=== PATIENT | female | born 1955 | race Caucasian/White ===

== ENCOUNTER 2018-07-17 17:44 | Observation (INO) ==
[2018-07-17] MEDS ORDERED: 0.9 % Sodium Chloride 1,000 ML IVC ONE (18:48)
--- NOTE | 2018-07-17 18:53 | Emergency Department Note ---
Disposition Clinical Impression: Pneumonitis Sepsis Qualifiers: Sepsis type: sepsis due to unspecified organism Qualified Code(s): A41.9 - Sepsis, unspecified organism Disposition: Admitted As Inpatient Referrals: James Ramos DO [Primary Care Provider] - Forms: ED Satisfaction Letter General Adult HPI - General Chief complaint: ED Weakness Stated complaint: Weak / Cough / Chest And Back Pain Time Seen by Provider: 07/17/18 18:32 Source: patient, family Limitations: no limitations Nursing Notes Reviewed: Yes Vital Signs Reviewed: Yes - History of Present Illness HPI Narrative: 63-year-old female history of s/p pituitary surgery presents emergency department with weakness cough and chest pain. She states over the past 4 days she is been experiencing a productive cough that has gradually worsened. Today she began experiencing chest pressure approximately 8 hours prior to arrival. It is worse with deep inspiration. She has some associated back pain. The back pain and chest pain or separate and does not radiate one from the other. Denies any syncope or lightheadedness. It is worse as well after coughing. She denies any fevers but does admit to being cold. She has been feeling weak unable to move around. Denies any muscle aches. She is concerns you might have the flu or pneumonia. No recent hospitalization. She has not taken anything for the pain. No history of cardiac ischemic disease. She denies any hemoptysis, history of blood clots, cancer or recent long-distance travel. Pain Scale: 10 - Related Data Home Medications Medication Instructions Recorded Confirmed Calcium 04/12/16 Levothyroxine 04/12/16 PredniSONE 04/12/16 04/12/16 Previous Rx's Medication Instructions Recorded Diclofenac Sodium [Voltaren] 50 mg PO Q8HR #30 tablet. 04/12/16 Ondansetron ODT [Zofran ODT] 4 mg SL Q6HR #15 tab.rapdis 09/09/16 levoFLOXacin [Levaquin] 500 mg PO DAILY #7 tablet 07/02/17 Allergies Allergy/AdvReac Type Severity Reaction Status Date / Time Penicillins [PCN] Allergy See Verified 04/12/16 18:42 Comments All systems ED: reviewed and negative except as stated. Review of Systems: As Per HPI Constitutional: Reports: chills. Denies: fever ENT ED: Reports: ear pain. Denies: congestion Cardiovascular: Reports: chest pain, dyspnea on exertion. Denies: syncope Respiratory: Reports: cough, dyspnea, sputum production. Denies: hemoptysis Gastrointestinal: Denies: abdominal pain, nausea, vomiting Genitourinary: Denies: dysuria Musculoskeletal: Reports: back pain. Denies: neck pain Integumentary: Denies: rash, abrasion Neurological: Denies: headache Past Medical History - Past Medical History Attestation: Yes The following information was validated with the patient. Source: patient Medical history: Reports: non-contributory, thyroid disease Psychiatric history: Reports: no psych history - Social History Smoking Status: Never smoker Smokeless Tobacco Status: No Alcohol use: Reports: none Drug use: Reports: none Physical Exam - General Limitations: no limitations General appearance: alert, in no apparent distress - Head Head exam: atraumatic, normocephalic, normal inspection - Eye Eye exam: Present: normal appearance, PERRL, EOMI - ENT ENT exam: normal exam, normal oropharynx, mucous membranes moist - Neck Neck exam: Present: normal inspection, full ROM, trachea midline - Chest Chest inspection: Present: normal inspection, symmetric chest wall rise, tenderness (Midsternum, reproducible). Absent: rash - Respiratory Respiratory exam: Present: normal lung sounds bilaterally. Absent: respiratory distress, wheezes - Cardiovascular Cardiovascular exam: Present: regular rate, normal rhythm, normal heart sounds - Abdominal Exam Abdominal exam: Present: soft, Non-Tender, normal bowel sounds. Absent: tenderness, distention, guarding, rebound, rigidity - Extremities Exam Extremities exam: Present: normal inspection, full ROM, normal capillary refill. Absent: tenderness, pedal edema, calf tenderness - Back Exam Back exam: Present: normal inspection, full ROM. Absent: tenderness - Neurological Exam Neurological exam: Present: alert, oriented X3 - Psychiatric Psychiatric exam: Present: normal affect, normal mood - Skin Skin exam: Present: warm, dry, intact, normal color. Absent: rash, cyanosis, diaphoresis Course Course Narrative: Patient presents with cough over the past 4 days with some associated chest pain. No history of cardiac ischemic disease. She is tachycardic with increased respiratory rate. Concern for sepsis likely respiratory source. Also obtain a D dimer as she is low risk and of flu swab. Patient was warm to the touch and will receive Tylenol for her discomfort. Her lungs were otherwise clear auscultation bilaterally. Chest x-ray to evaluate for any pulmonary etiology. - Reevaluation(s) Reevaluation #1: Patient has a mild leukocytosis. Her labs or otherwise unremarkable. Troponin is less than 0.03. Low suspicion for cardiac ischemia. Chest x-ray did not reveal any pulmonary etiology such as pneumonia. Her influenza swap is pending. Her D dimer was significantly elevated and will be obtaining a CT angio chest. Time: 22:06 Reevaluation #2: CT scan did not reveal dissection or PE, evidence of possible infectious pneumonitis. Will place on Azithromycin and Ceftriaxone as this is likely community acquired given no recent hospitalization in 3 months. Impression is infectious pneumonitis meeting sepsis without hypotension or evidence of shock. Time: 23:38 - Consultations Consultation #1: Patient accepted for admission by hospitalist Dr. Schuler for sepsis secondary to infectious pneumonitis. No further orders at this time. Vital Signs Temperature 99.3 F 07/17/18 17:47 Pulse Rate 103 07/17/18 17:47 Respiratory Rate 22 07/17/18 17:47 Blood Pressure 175/121 07/17/18 17:47 O2 Sat by Pulse Oximetry 97 07/17/18 17:47 Temperature 99.3 F 07/17/18 18:41 Pulse Rate 102 07/17/18 21:11 Respiratory Rate 21 07/17/18 21:11 Blood Pressure 148/95 07/17/18 21:11 O2 Sat by Pulse Oximetry 94 07/17/18 21:11 Oxygen Delivery Oxygen Delivery Room Air Medical Decision Making - MDM Narrative Medical decision making narrative: Patient was discussed with my attending physician who agrees with ED management and final disposition. They independently evaluated the patient. Please refer to their attestation to this encounter for additional information. This note was generated by deltamethod voice recognition software and as a result grammatical or spelling errors may occur using this program. - Medical Records Medical records reviewed: Yes I reviewed the patient's medical records. - Lab Data Lab results reviewed: Yes I reviewed the patient's lab results. Result diagrams: 07/17/18 18:46 07/17/18 18:46 Lab Results 07/17/18 07/17/18 07/17/18 Range/Units 18:46 18:46 18:46 WBC 13.7 H (4.3-11.1) K/mcL RBC 4.79 (3.82-4.97) M/mcL Hgb 13.4 (11.5-15.4) g/dL Hct 41.9 (35.3-44.9) % MCV 87.5 (83.0-100.0) fL MCH 28.0 (28.0-33.3) pg MCHC 32.0 (31.6-35.5) g/dL RDW 13.5 (11.5-14.5) % Plt Count 172 (140-400) K/mcL MPV 11.2 (9.4-12.4) fL Immature Gran % 0.6 (0-4) % Seg Neutrophils % 74.5 % Lymphocytes % 15.8 % Monocytes % 7.7 % Eosinophils % 0.9 % Basophils % 0.5 % Neutrophils # 10.2 H (1.6-8.9) K/mcL Lymphocytes # 2.2 (0.6-4.6) K/mcL Monocytes # 1.1 (0.0-1.3) K/mcL Eosinophils # 0.1 (0.0-0.6) K/mcL Basophils # 0.1 (0.0-0.2) K/mcL PT 11.8 (9.4-12.1) Seconds INR 1.0 APTT 35.1 (26.0-36.0) Seconds D-Dimer 703 H (0-500) ng/mLFEU Sodium 140 (136-145) mEq/L Potassium 3.6 (3.5-5.1) mEq/L Chloride 104 (98-107) mEq/L Carbon Dioxide 25 (23-29) mEq/L BUN 12 (8-23) mg/dL Creatinine 0.85 (0.60-1.20) mg/dL Est GFR ( Amer) > 60 (> 60) Est GFR (Non-Af Amer) > 60 (> 60) BUN/Creatinine Ratio 14 (6-26) Glucose 95 (70-105) mg/dL Calculated Osmolality 290 (280-300) Lactic Acid (0.5-2.2) mmol/L Calcium 9.0 (8.6-10.3) mg/dL Phosphorus 3.3 (2.7-4.5) mg/dL Magnesium 1.9 (1.6-2.6) mg/dL Total Bilirubin 1.1 H (0.3-1.0) mg/dL Direct Bilirubin 0.2 (0.0-0.2) mg/dL Indirect Bilirubin 0.9 (0.0-1.2) mg/dL AST 17 (13-39) Units/L ALT 13 (7-52) Units/L Alkaline Phosphatase 61 (34-104) Units/L Troponin I < 0.03 (< 0.04) ng/mL Serum Total Protein 6.7 (6.4-8.9) g/dL Albumin 4.3 (3.5-5.7) g/dL Globulin 2.4 (2.4-3.5) g/dL Albumin/Globulin Ratio 1.8 (1.1-2.2) Urine Color (Yellow) Urine Clarity (Clear) Urine pH (5.0-8.0) pH Units Ur Specific Bryant (1.010-1.025) Urine Protein (Neg-Trace) mg/dL Urine Glucose (UA) (Normal) mg/dL Urine Ketones (Negative) mg/dL Urine Blood (Negative) Urine Nitrite (Negative) Urine Bilirubin (Negative) Urine Urobilinogen (Normal) mg/dL Ur Leukocyte Esterase (Negative) Urine Microscopic RBC (0-3) per hpf Urine Microscopic WBC (0-3) per hpf Ur Squamous Epith Cells (None-Few) per lpf Urine Bacteria (None-Few) per hpf Hyaline Casts (None-Few) per lpf Ur Culture Indicated? (NO) 07/17/18 07/17/18 Range/Units 19:59 21:06 WBC (4.3-11.1) K/mcL RBC (3.82-4.97) M/mcL Hgb (11.5-15.4) g/dL Hct (35.3-44.9) % MCV (83.0-100.0) fL MCH (28.0-33.3) pg MCHC (31.6-35.5) g/dL RDW (11.5-14.5) % Plt Count (140-400) K/mcL MPV (9.4-12.4) fL Immature Gran % (0-4) % Seg Neutrophils % % Lymphocytes % % Monocytes % % Eosinophils % % Basophils % % Neutrophils # (1.6-8.9) K/mcL Lymphocytes # (0.6-4.6) K/mcL Monocytes # (0.0-1.3) K/mcL Eosinophils # (0.0-0.6) K/mcL Basophils # (0.0-0.2) K/mcL PT (9.4-12.1) Seconds INR APTT (26.0-36.0) Seconds D-Dimer (0-500) ng/mLFEU Sodium (136-145) mEq/L Potassium (3.5-5.1) mEq/L Chloride (98-107) mEq/L Carbon Dioxide (23-29) mEq/L BUN (8-23) mg/dL Creatinine (0.60-1.20) mg/dL Est GFR ( Amer) (> 60) Est GFR (Non-Af Amer) (> 60) BUN/Creatinine Ratio (6-26) Glucose (70-105) mg/dL Calculated Osmolality (280-300) Lactic Acid 1.2 (0.5-2.2) mmol/L Calcium (8.6-10.3) mg/dL Phosphorus (2.7-4.5) mg/dL Magnesium (1.6-2.6) mg/dL Total Bilirubin (0.3-1.0) mg/dL Direct Bilirubin (0.0-0.2) mg/dL Indirect Bilirubin (0.0-1.2) mg/dL AST (13-39) Units/L ALT (7-52) Units/L Alkaline Phosphatase (34-104) Units/L Troponin I (< 0.04) ng/mL Serum Total Protein (6.4-8.9) g/dL Albumin (3.5-5.7) g/dL Globulin (2.4-3.5) g/dL Albumin/Globulin Ratio (1.1-2.2) Urine Color Yellow (Yellow) Urine Clarity Clear (Clear) Urine pH 6.5 (5.0-8.0) pH Units Ur Specific Bryant 1.020 (1.010-1.025) Urine Protein Negative (Neg-Trace) mg/dL Urine Glucose (UA) Normal (Normal) mg/dL Urine Ketones Negative (Negative) mg/dL Urine Blood Moderate H (Negative) Urine Nitrite Negative (Negative) Urine Bilirubin Negative (Negative) Urine Urobilinogen Normal (Normal) mg/dL Ur Leukocyte Esterase Small H (Negative) Urine Microscopic RBC 5-15 H (0-3) per hpf Urine Microscopic WBC 5-15 H (0-3) per hpf Ur Squamous Epith Cells Moderate H (None-Few) per lpf Urine Bacteria None Seen (None-Few) per hpf Hyaline Casts None Seen (None-Few) per lpf Ur Culture Indicated? YES A (NO) - Radiology Data Radiology results reviewed: Yes I reviewed the patient's radiology results. Chest X-Ray 07/17/18 18:47 IMPRESSION: Pulmonary vascular congestion without overt edema. D/ / Ortiz Hernandes MD / Ortiz Hernandes MD Interpreting Provider: Ortiz Hernandes MD Chest X-Ray 07/17/18 18:47 IMPRESSION: Pulmonary vascular congestion without overt edema. D/ / Ortiz Hernandes MD / Ortiz Hernandes MD Interpreting Provider: Ortiz Hernandes MD Chest CTA 07/17/18 21:45 IMPRESSION: No evidence of pulmonary embolism or aortic dissection. Alveolar ground-glass opacity found throughout both lungs, with possible mild interlobular septal thickening. The ground-glass opacity is nonspecific, and can be secondary to micro atelectasis from low lung volumes. However, correlate with any evidence of early pulmonary edema or with infectious pneumonitis. D/ / Ricco Duke MD / Ricco Duke MD Interpreting Provider: Ricco Duke MD - EKG Data EKG #1 EKG attestation: Yes I reviewed and interpreted this EKG. EKG results narrative: EKG performed 1855 sinus tachycardia 100 beats per minute, old Q waves seen in the inferior leads, poor R wave progression, no ST elevation or depression, intervals within normal limits. Compared to prior EKG performed 07/02/2017 shows similar consistent findings of Q waves in inferior leads with poor R wave progression. No acute ischemic changes. Attestation Statement - Attestation Attestation: I, Nick Gutiérrez, examined this patient and my medical decision-making was reviewed with the BARK SCALER/PA/Advanced Practice Nurse/Resident Physician. I agree with the documented findings, disposition and treatment plan as described except to the extent set forth below. 63-year-old female presents emergency Department with concerns of increased weakness, cough, chest and back pain. Patient states symptoms have been increasing over the past few days. Denies fever, chills, nausea, vomiting, diarrhea. Denies recent trauma. No changes in her medications. Chest x-ray shows vascular congestion however it does not show acute infiltrate. Patient was afebrile and did not have a leukocytosis. EKG showed sinus tachycardia with a rate of 100. D-dimer was elevated at 703. We will obtain CT of the chest to further evaluate for possible dissection versus PE.
[2018-07-17] MEDS ORDERED: Ondansetron 4 MG/2 ML VIAL IVP ONE ×2 (19:30→20:22)
[2018-07-17 20:12] LABS: Bacteria,Urine None Seen per hpf (None-Few); Bilirubin,Urine Negative (Negative); Blood,Urine Moderate (Negative); Clarity,Urine Clear (Clear); Color,Urine Yellow (Yellow); Glucose,Urine (UA) Normal (Normal); Hyaline Casts,Urine None Seen per lpf (None-Few); Ketones,Urine Negative (Negative); Leukocyte Esterase,Urine Small (Negative); Nitrite,Urine Negative (Negative); PH,Urine 6.5 pH Units (5.0-8.0); Protein,Urine Negative (Neg-Trace); Squamous Epithelial Cell,Urine Moderate per lpf (None-Few); Urobilinogen,Urine Normal (Normal)
[2018-07-17 21:14] LABS: Basophils # 0.1 K/mcL (0.0-0.2); Basophils % 0.5 %; Eosinophils # 0.1 K/mcL (0.0-0.6); Eosinophils % 0.9 %; Hematocrit 41.9 % (35.3-44.9); Hemoglobin 13.4 g/dL (11.5-15.4); Immature Granulocytes % 0.6 % (0-4); Lymphocytes # 2.2 K/mcL (0.6-4.6); Lymphocytes % 15.8 %; Mean Corpuscular Volume 87.5 fL (83.0-100.0); Mean Platelet Volume 11.2 fL (9.4-12.4); Monocytes # 1.1 K/mcL (0.0-1.3); Monocytes % 7.7 %; Neutrophils # 10.2 K/mcL (1.6-8.9); Platelet Count 172 K/mcL (140-400); Red Blood Count 4.79 M/mcL (3.82-4.97); Red Cell Distribution Width 13.5 % (11.5-14.5); Segmented Neutrophils % 74.5 %
[2018-07-17 21:36] LABS: Alanine Aminotransferase 13 Units/L (7-52); Albumin 4.3 g/dL (3.5-5.7); Albumin/Globulin Ratio 1.8 (1.1-2.2); Alkaline Phosphatase 61 Units/L (34-104); Aspartate Amino Transferase 17 Units/L (13-39); BUN/Creatinine Ratio 14 (6-26); Bilirubin,Direct 0.2 mg/dL (0.0-0.2); Bilirubin,Indirect 0.9 mg/dL (0.0-1.2); Bilirubin,Total 1.1 mg/dL (0.3-1.0); Blood Urea Nitrogen 12 mg/dL (8-23); Carbon Dioxide 25 mEq/L (23-29); Chloride 104 mEq/L (98-107); Globulin 2.4 g/dL (2.4-3.5); Glucose 95 mg/dL (70-105); Magnesium 1.9 mg/dL (1.6-2.6); Osmolality,Calculated 290 (280-300); Phosphorous 3.3 mg/dL (2.7-4.5); Potassium 3.6 mEq/L (3.5-5.1); Sodium 140 mEq/L (136-145); Total Protein 6.7 g/dL (6.4-8.9); Troponin I < 0.03 ng/mL (< 0.04); eGFR For Non-African Americans > 60 (> 60)
[2018-07-17 21:41] LABS: Prothrombin Time 11.8 Seconds (9.4-12.1)
[2018-07-17 21:43] LABS: Activated Partial Thrombo Time 35.1 Seconds (26.0-36.0)
[2018-07-17] MEDS ORDERED: Isovue-370 500 ML INFUS..BTL IV ONE (21:45)
[2018-07-17] MEDS ORDERED: Azithromycin 500 MG in D5% in Water 250 ML IVPB ONE (23:25)
[2018-07-17] MEDS ORDERED: cefTRIAXone 1,000 MG in Water for inj. (sterile) 20 ML 10 ML IVP ONE (23:25)
[2018-07-18] MEDS ORDERED: *HR* Etomidate 20 MG/10 ML AMPUL IVP ONE (00:07)
[2018-07-18] MEDS ORDERED: *HR* Midazolam HCl 5 MG/5 ML VIAL IVP ONE (00:07)
[2018-07-18] MEDS ORDERED: *HR* Midazolam HCl 2 MG/2 ML VIAL IV ONE (00:07)
[2018-07-18] MEDS ORDERED: Haloperidol Lactate 5 MG/ML VIAL ONE (00:08)
[2018-07-18] MEDS ORDERED: Haloperidol Lactate 5 MG/ML VIAL IVP ONE (00:11)
[2018-07-18] MEDS ORDERED: Naloxone 0.4 MG/ML INJ IVP PRN (03:36)
[2018-07-18] MEDS ORDERED: Ondansetron 4 MG/2 ML VIAL IVP PRN (03:42)
[2018-07-18] MEDS ORDERED: 0.9 % Sodium Chloride w KCl 20 MEQ/1,000 ML MLS IVC SCH (03:45)
--- NOTE | 2018-07-18 04:31 | Internal Med History&Physical ---
Date of Encounter: 07/18/18 Time of Encounter: 01:30 Internal Medicine - H&P: HPI Chief complaint: protracted vomiting, fever Admitted From: Emergency Dept Plans for Post Hospital Care: Home History of present illness: Ms. Barber is a 63 year old female who presents to the ER tonight with complaints of cough, fever, protracted nausea and vomiting, and body aches. Symptoms started over last 4-5 days and have progressively worsened over last 24 hours. She was seen and evaluated in the ER and diagnosed with pneumonitis on CT scan of the chest. She was therefore admitted to hospitalist service for further workup and care. Upon my assessment of the patient in the ER, patient was somnolent and had altered mental status secondary to just receiving Phenergan prior to my arrival. She also received Haldol in ER prior to arrival to the floor. History was obtained from . She was alert and oriented prior to her altered mental status secondary to Phenergan effect. He confirms the above history. He and she both thought that she had flulike symptoms and, because of her complicated medical history and chronic steroid use, she came to ER for evaluation. Patient's also informed me that this is same type presentation she had in 2003 when she had to have her third neurosurgical resection of her pituitary tumor. He requested I obtain a CT scan of her head given her clinical presentation. Additionally, she is on chronic steroids at home and, given her acute illness, she is in need of stress dose steroids. I did order a stat CT the head which revealed hydrocephalus and prior pituitary resection. I compared imaging from 2010, which was her last CT scan. The images look similar to me, but there was comment by radiology that hydrocephalus was progressive. I therefore contacted [facility] neurosurgery (Dr. Bautista) and discussed the case with him. I suspect her altered mental status is likely second to Phenergan and Haldol she received in the ER, and he agrees. He did not feel there was any need for acute neurosurgical intervention and/or urgent transfer at this moment. However , he did recommend close and repeat neurological evaluation after the medication effect wears off from Phenergan and Haldol. Should there be concern for further neurologic and/or neurosurgical evaluation, he recommends contacting [facility] again and request transfer if necessary. Otherwise, he agrees that JEWELRY MAKER effects are likely due to medications in the ER. Past Med Surg Social Fam HX - Past Medical History Source: patient, old records reviewed, obtained from family, other (ER notes) Medical history: thyroid disease, other (pituitary tumor -- resection x 3) Psychiatric history: no psych history - Past Surgical History Surgical History: other (neurosurgery x 3) Additional surgical history: pituitary surgeries for tumor x3 - Social History Smoking Status: Never smoker Smokeless Tobacco Status: No Alcohol use: none Drug use: none Occupational status: employed Current living situation: Home, With Family Activity Level: Independent ambulation, Very active Recent Out of Country Travel Within the Last 8 Weeks: No - Family History Mother History Unknown: Yes Father History Unknown: Yes Internal Medicine - H&P: Meds Levothyroxine [Synthroid] 125 mcg PO 0630 07/18/18 [History] predniSONE [PredniSONE] 7.5 mg PO DAILY 07/18/18 [History] 3 Allergy/AdvReac Type Severity Reaction Status Date / Time Penicillins [PCN] Allergy See Verified 04/12/16 18:42 Comments - Constitutional Constitutional: chills, fever(s), no falls, no lethargy - EENT Eyes: no blurry vision, no change in vision Ears: no ear pain, no tinnitus Nose, mouth and throat: no nasal discharge, no sinus pressure, no sore throat - Cardiovascular Cardiovascular ROS IM: no chest pain, no dyspnea, no dyspnea on exertion, no orthopnea, no palpitations - Respiratory Respiratory: cough, no hemoptysis, no wheezing, no chest congestion, no excessive phlegm production, no change in phlegm color - Gastrointestinal Gastrointestinal: diarrhea, nausea, vomiting, no abdominal pain, no hematemesis , no hematochezia, no melena - Genitourinary Genitourinary: no dysuria, no flank pain, no hematuria - Musculoskeletal Musculoskeletal ROS IM: arthralgias, myalgias, no back pain - Integumentary Integumentary IM: no rash, no jaundice - Neurological Neurological ROS: no behavioral changes, no confusion, no convulsions, no dizziness, no focal weakness, no frequent falls, no headache(s), no numbness, no paresthesias, no vertigo - Psychiatric Psychiatric: no anxiety, no depression - Endocrine Endocrine IM: no cold intolerance, no heat intolerance, no polydipsia, no polyuria - Hematologic/Lymphatic Hematologic/Lymphatic: no easy bruising, no lymphadenopathy - Allergic/Immunologic Allergic/Immunologic: no GI upset with certain foods - Constitutional Vitals: Temp Pulse Resp BP Pulse Ox 98.2 F 109 16 169/72 94 07/18/18 03:03 07/18/18 03:03 07/18/18 03:03 07/18/18 03:03 07/18/18 03:03 General appearance: Present: A&O X 1, no acute distress. Absent: answers questions appropriately Exam: somnolent; confused and disoriented now - suspect medication effect from Phenergan and Haldol received in ER - Head Head exam: Present: atraumatic, normal inspection - Eye Eye exam: Present: EOMI. Absent: PERRL (left pupil 1 mm larger than right ( chronic)), scleral icterus Pupils: Present: normal accommodation - ENT ENT exam: Present: mucous membranes dry, normal exam, normal oropharynx - Neck Neck exam general surgery: Present: full ROM, supple. Absent: lymphadenopathy, tenderness, nuchal rigidity, thyromegaly - Respiratory Respiratory exam: Present: rhonchi. Absent: chest wall tenderness, CTAB, rales , respiratory distress, wheezes - Cardiovascular Cardiovascular exam: Present: distant heart sounds, RRR, +S1, +S2. Absent: diastolic murmur, systolic murmur - GI/Abdominal GI/Abdominal exam: Present: normal bowel sounds, soft. Absent: hepatomegaly, mass, splenomegaly, tenderness - Extremities Exam Extremities exam: Present: full ROM, normal capillary refill, warm, radial pulses palpable and symmetrical. Absent: calf tenderness, joint swelling, pedal edema, tenderness - Back Exam Back exam: Present: normal inspection. Absent: CVA tenderness (L), CVA tenderness (R) - Neurological Exam Neurological exam: Present: altered (examined shortly after patient received Phenergan), no focal deficits Additional comments: opens eyes, responds verbally, and moves all four extremities - Skin Skin exam: Present: dry, intact, warm Internal Med - H&P Results - Labs CBC & Chem 7: 07/17/18 18:46 07/17/18 18:46 - EKG Data -: EKG Interpreted by Myself - EKG Data Prior EKG available for review: no EKG comments: 07/18/18 04:51 sinus tachycardia - Impressions ITS Impressions Head CT 07/18/18 01:27 IMPRESSION: Evidence of pituitary resection with progressive hydrocephalus. There is no acute hemorrhage or definite evidence for acute ischemia. Pituitary protocol MRI is the test of choice if there is concern for recurrent tumor. D/ / Adonis Perdomo MD / Adonis Perdomo MD Interpreting Provider: Adonis Perdomo MD - Diagnostic Studies CT scan - chest Status: image reviewed by me (suspect pneumonitis) CT scan - head Status: image reviewed by me (hydrocephalus -- similar in appearance compared to 2011) - Assessment and plan (1) Pneumonitis Current Visit: Yes Status: Acute Assessment and plan: 1. Will treat with IV Levaquin oxygen, aerosols as needed. 2. Clinical follow up and reassessment. 3. Follow blood cultures and adjust antibiotics as indicated. (2) Hydrocephalus Current Visit: Yes Status: Acute Assessment and plan: 1. Discussed with Neurosurgery at [facility] (Dr. Bautista). 2. Will order MRI w pituitary protocol. 3. Further decisions, follow-up, transfer if necessary, after MRI and repeat neurological exam after Phenergan and Haldol wear off. (3) Chronic steroid use Current Visit: Yes Status: Chronic Assessment and plan: 1. Will add stress dose steroids for now given her acute illness and presentation. 2. Wean SoluCortef off as she improves clinically. 3. Continue home dose of Prednisone. 4. No evidence of adrenal crisis on exam. (4) DVT prophylaxis Current Visit: Yes Status: Acute Assessment and plan: 1. Heparin SQ.
[2018-07-18] MEDS: Hydrocortisone Sodium Succ 100 MG/2 ML VIAL IVP SCH ×2 (04:54→09:04)
[2018-07-18] MEDS ORDERED: Albuterol 2.5 MG/3 ML NEBULIZER IH PRN (04:59)
[2018-07-18] MEDS: *HR* LORazepam 2 MG/ML VIAL ONE ×2 (05:33→06:34)
[2018-07-18] MEDS ORDERED: Artificial Tears SOLN 15 ML BOTTLE BOTH EYES PRN (05:51)
[2018-07-18] MEDS ORDERED: *HR* Heparin 5,000 UNIT/ML VIAL SQ SCH (06:00)
--- NOTE | 2018-07-18 06:00 | Procedure Note ---
<Zacarias Duran - Last Filed: 07/18/18 05:54> Date of procedure: 07/18/18 Pre-op diagnosis: Altered mental status, unable to protect airway Post-op diagnosis: same Procedure: During rapid response (see event note) it was determined that the patient had lost her gag reflex and was unable to protect her airway therefore the decision was made to emergently intubate. Patient was preoxygenated with bag valve mask and oral airway. Patient was given Versed 5 mg and etomidate 20 mg. Initially at direct laryngoscope was inserted into the airway however the patient's airway was extremely anterior and the vocal cords cannot be visualized therefore the direct laryngoscope was removed and the video laryngoscope was obtained. With patient's oxygen saturation 100% the video laryngoscope was inserted and with cricoid pressure applied cords were visualized and were initially open but quickly closed making visualization through the vocal cords difficult. The airway was noted to be edematous. An initial attempt was made that was unsuccessful. The laryngoscope was removed and the patient was again oxygenated to 100%. A second look was attempted and again after initial good visualization her vocal cords closed and would not open. Patient was given another 2 mg of Versed. On the third attempt a 7.5 ET tube was visualized passing through the vocal cords. Positive colorimetric change was noted. Bilateral breath sounds were heard but were diminished on the left therefore the ET tube was retracted 1 cm to 22 cm at the lip. Patient had good bilateral breath sounds and maintained her oxygen saturation. The patient tolerated the procedure well, there were no immediate complications. Chest x-ray to confirm ET tube placement is pending. The attending physician, Dr. Jaime, was present for the entire procedure. Anesthesia: IV sedation (5mg Versed, 20mg Etomidate, 2mg Versed) Surgeon: Zacarias Duran Was there an tutoring assistant present: No Estimated blood loss (cc): 0 IV fluids (cc): 0 Specimen: none Pathology: none sent Condition: critical Disposition: ICU <Aime Jaime - Last Filed: 07/18/18 07:38> Procedure: I was present during rapid response and asked Dr. Duran to secure airway and to proceed with ETT. I supervised ETT placement and confirmed ETT with auscultation and CO2 detector.
--- NOTE | 2018-07-18 06:43 | Event Note ---
Date of Encounter: 07/18/18 Time of Encounter: 05:49 I responded to an urgent call from RN on this patient. As I arrived at bedside , a rapid response was called. Patient suddenly developed stiffening of her arms, moaning, groaning, deviation of her eyes to the right, and unresponsiveness to verbal or painful stimuli. I was concerned that she was having extrapyramidal effects from Phenergan and Haldol she received in ER. I therefore ordered Cogentin 1 mg to be given, then repeated it a few minutes later. She had some response from that, but she had continued deviation of her eyes to the right. I was also concerned that she was seizing, and I therefore ordered Ativan. She responded to Ativan, but she continued to have some moaning. She remained unresponsive to tactile and painful stimuli. She was unable to protect her airway and had no gag reflex at that time. We therefore proceeded to intubate and secure an airway. Dr. Duran was successful on second attempt under my direct supervision. She received a total of 7 mg Versed and 20 mg Etomidate for sedation prior to intubation. Patient was then moved to ICU for ongoing care. I am contacting [facility] requesting transfer and neurosurgical consultation. I and nursing staff have attempted to contact patient's numerous times tonight without success. I receive voicemail when I call, and mailbox is full with no ability to leave voice message. I spoke with Dr. Padilla (Medical ICU attending at [facility]) and discussed the case with him. He agrees with plan of care and accepts patient in transfer. We are awaiting bed assignment from [facility] transfer center and we will then request transport. I also gave sign out to Dr. Harmon (our ICU attending) in the event she needs urgent intervention prior to transfer.
[2018-07-18 07:36] LABS: Basophils # 0.1 K/mcL (0.0-0.2); Basophils % 0.4 %; Eosinophils % 0.1 %; Hematocrit 49.2 % (35.3-44.9); Immature Granulocytes % 1.3 % (0-4); Lymphocytes # 0.7 K/mcL (0.6-4.6); Lymphocytes % 3.4 %; Mean Corpuscular HGB Conc 32.3 g/dL (31.6-35.5); Mean Corpuscular Hemoglobin 28.4 pg (28.0-33.3); Mean Platelet Volume 10.8 fL (9.4-12.4); Monocytes # 1.6 K/mcL (0.0-1.3); Monocytes % 7.7 %; Neutrophils # 17.8 K/mcL (1.6-8.9); Platelet Count 174 K/mcL (140-400); Red Blood Count 5.59 M/mcL (3.82-4.97); Red Cell Distribution Width 13.7 % (11.5-14.5); Segmented Neutrophils % 87.1 %
[2018-07-18 07:37] LABS: ABG Base Excess 4 mEq/L (-2 to 3); ABG HCO3 27 mEq/L (21-27); ABG Oxygen Saturation 95 % (95-98); ABG PCO2 35 mmHg (35-45); ABG PH 7.49 pH Units (7.32-7.45); ABG PO2 68 mmHg (85-104); ABG TCO2 28 mEq/L (20-26); Blood Gas Modality ASSIST CONTROL; Blood Gas PEEP 5 cm H2O; Blood Gas Respiration Rate 14; Blood Gas VT 450 cc
[2018-07-18] MEDS ORDERED: Artificial Tears SOLN 15 ML BOTTLE BOTH EYES SCH (08:00)
[2018-07-18 08:06] LABS: Hemoglobin 15.9 g/dL (11.5-15.4)
[2018-07-18 08:23] LABS: Prothrombin Time 11.5 Seconds (9.4-12.1)
[2018-07-18 08:25] LABS: Activated Partial Thrombo Time 28.7 Seconds (26.0-36.0)
[2018-07-18] MEDS ORDERED: Pantoprazole 40 MG VIAL IVP SCH (09:00)
[2018-07-18] MEDS ORDERED: predniSONE 5 MG TABLET PO SCH (09:00)
[2018-07-18] MEDS ORDERED: Chlorhexidine Rinse 15 ML MOUTHWASH MM SCH (09:00)
[2018-07-18 09:21] LABS: Alanine Aminotransferase 15 Units/L (7-52); Albumin 4.4 g/dL (3.5-5.7); Albumin/Globulin Ratio 1.5 (1.1-2.2); Alkaline Phosphatase 75 Units/L (34-104); Aspartate Amino Transferase 25 Units/L (13-39); BUN/Creatinine Ratio 10 (6-26); Bilirubin,Total 1.7 mg/dL (0.3-1.0); Blood Urea Nitrogen 10 mg/dL (8-23); Calcium 9.2 mg/dL (8.6-10.3); Carbon Dioxide 30 mEq/L (23-29); Chloride 98 mEq/L (98-107); Globulin 2.9 g/dL (2.4-3.5); Glucose 144 mg/dL (70-105); Magnesium 1.7 mg/dL (1.6-2.6); Osmolality,Calculated 288 (280-300); Phosphorous 1.6 mg/dL (2.7-4.5); Potassium 3.2 mEq/L (3.5-5.1); Sodium 138 mEq/L (136-145); Total Protein 7.3 g/dL (6.4-8.9); eGFR For Non-African Americans 54 (> 60)
[2018-07-18] MEDS ORDERED: *HR* Metoprolol 5 MG/5 ML VIAL IVP ONE ×2 (09:44→09:50)
[2018-07-18 10:12] VITALS: BP 134/82
[2018-07-18] MEDS ORDERED: Levofloxacin 500 MG/100 ML 500 MG/100 ML BAG IVPB SCH (12:00)
--- NOTE | 2018-07-19 12:40 | Electrocardiograph Report ---
[address] [place] [address] Test Date: 2018-07-17 Pat Name: Deana Barber Department: [id number] Room: [facility] Gender: F Wellness Director: : 1955 Requested By: Yunior Smith Order Number: [id number] Reading MD: Tong Phillips Measurements Intervals [place] Rate: 100 P: 43 [place]: 161 QRS: -47 QRSD: 87 T: 20 QT: 361 QTc: 466 Interpretive Statements Sinus tachycardia Left axis deviation Poor R wave progression Inferior infarct, age indeterminate Electronically Signed On 07-19-2018 12:39:30 EDT by Tong Phillips
--- NOTE | 2018-07-19 13:01 | Electrocardiograph Report ---
[address] [place] [address] Test Date: 2018-07-18 Pat Name: Deana Barber Department: 109 Room: [facility] Gender: F Motel Manager: : 1955 Requested By: Aime Jaime Order Number: [id number] Reading MD: Tong Phillips Measurements Intervals [place] Rate: 114 P: 56 [place]: 165 QRS: -47 QRSD: 89 T: 38 QT: 359 QTc: 426 Interpretive Statements Sinus tachycardia Left axis deviation Poor R wave progression Inferior infarct, age indeterminate Electronically Signed On 07-19-2018 13:00:38 EDT by Tong Phillips
== END 2018-07-18 10:55 ==
LOC: 2ANU 17:44 → EMEROOARM 17:44 → 1ANU 23:47 → 2ANU 07-18 02:36 → ICNU 07-18 06:29
PROVIDERS: ADMIT Family Medicine; ATTEND Family Medicine

== ENCOUNTER 2020-10-15 08:48 | Observation (INO) ==
[2020-10-15] MEDS ORDERED: *HR* HYDROmorphone 2 MG/ML SYRINGE IM ONE (11:18)
[2020-10-15] MEDS ORDERED: *HR* HYDROmorphone (PF) 1 MG/ML SYRINGE IVP ONE (11:37)
[2020-10-15 12:27] LABS: Hematocrit 47.5 % (35.3-44.9); Hemoglobin 15.1 g/dL (11.5-15.4); Immature Granulocytes % 1.4 % (0-4); Lymphocytes % 5.6 %; Mean Corpuscular HGB Conc 31.8 g/dL (31.6-35.5); Mean Corpuscular Hemoglobin 28.1 pg (28.0-33.3); Mean Corpuscular Volume 88.5 fL (83.0-100.0); Mean Platelet Volume 10.6 fL (9.4-12.4); Monocytes % 2.3 %; Platelet Count 287 K/mcL (140-400); Red Blood Count 5.37 M/mcL (3.82-4.97); Red Cell Distribution Width 13.9 % (11.5-14.5); Segmented Neutrophils % 90.4 %; White Blood Count 18.2 K/mcL (4.3-11.1)
[2020-10-15 12:28] LABS: Basophils # 0.1 K/mcL (0.0-0.2); Basophils % 0.3 %; Monocytes # 0.4 K/mcL (0.0-1.3); Neutrophils # 16.4 K/mcL (1.6-8.9)
[2020-10-15 12:52] LABS: BUN/Creatinine Ratio 28 (6-26); Blood Urea Nitrogen 30 mg/dL (8-23); Calcium 9.8 mg/dL (8.6-10.3); Carbon Dioxide 27 mEq/L (23-29); Chloride 100 mEq/L (98-107); Glucose 160 mg/dL (70-105); Osmolality,Calculated 294 (280-300); Potassium 3.7 mEq/L (3.5-5.1); Sodium 137 mEq/L (136-145); eGFR For African Americans > 60 (> 60); eGFR For Non-African Americans 51 (> 60)
[2020-10-15 13:09] LABS: Bacteria,Urine Few per hpf (None-Few); Bilirubin,Urine Negative (Negative); Blood,Urine Small (Negative); Clarity,Urine Clear (Clear); Color,Urine Yellow (Yellow); Glucose,Urine (UA) Normal (Normal); Hyaline Casts,Urine Few per lpf (None Seen); Ketones,Urine Negative (Negative); Leukocyte Esterase,Urine Negative (Negative); Mucus,Urine Few per lpf (None-Few); Nitrite,Urine Negative (Negative); PH,Urine 5.5 pH Units (5.0-8.0); Protein,Urine 30 mg/dL (Neg-Trace); Specific Gravity,Urine > 1.030 (1.010-1.025); Squamous Epithelial Cell,Urine Few per hpf (None-Few); Urobilinogen,Urine Normal (Normal)
[2020-10-15] MEDS ORDERED: cefTRIAXone 1,000 MG in Water for inj. (sterile) 10 ML IVP ONE (13:13)
[2020-10-15] MEDS ORDERED: Naloxone 0.4 MG/ML INJ IVP PRN (14:08)
[2020-10-15 14:17] LABS: C-Reactive Protein 11 mg/L (Less than 10)
[2020-10-15] MEDS ORDERED: *HR* OxyCODONE Immed Rel 5 MG TABLET PO PRN (14:41)
[2020-10-15] MEDS ORDERED: Acetaminophen 325 MG TABLET PO PRN (14:41)
[2020-10-15] MEDS ORDERED: *HR* HYDROcodone/Acet 5/325 mg TABLET PO PRN (14:41)
[2020-10-15] MEDS: predniSONE 20 MG TABLET PO SCH (16:37)
[2020-10-15] MEDS: Gabapentin 300 MG CAPSULE PO SCH ×2 (16:37→21:03)
[2020-10-15] MEDS: *HR* Heparin 5,000 UNIT/ML VIAL SQ SCH (19:19)
[2020-10-16 02:46] LABS: Basophils # 0.1 K/mcL (0.0-0.2); Basophils % 0.3 %; Hematocrit 42.8 % (35.3-44.9); Hemoglobin 13.7 g/dL (11.5-15.4); Immature Granulocytes % 1.2 % (0-4); Lymphocytes # 1.4 K/mcL (0.6-4.6); Lymphocytes % 7.1 %; Mean Corpuscular Hemoglobin 28.6 pg (28.0-33.3); Mean Corpuscular Volume 89.4 fL (83.0-100.0); Mean Platelet Volume 10.4 fL (9.4-12.4); Monocytes # 0.6 K/mcL (0.0-1.3); Monocytes % 3.2 %; Neutrophils # 16.8 K/mcL (1.6-8.9); Platelet Count 252 K/mcL (140-400); Red Blood Count 4.79 M/mcL (3.82-4.97); Red Cell Distribution Width 13.6 % (11.5-14.5); Segmented Neutrophils % 88.2 %
[2020-10-16 03:04] LABS: BUN/Creatinine Ratio 31 (6-26); Blood Urea Nitrogen 28 mg/dL (8-23); Calcium 8.9 mg/dL (8.6-10.3); Carbon Dioxide 27 mEq/L (23-29); Chloride 103 mEq/L (98-107); Glucose 154 mg/dL (70-105); Osmolality,Calculated 293 (280-300); Sodium 137 mEq/L (136-145); eGFR For African Americans > 60 (> 60); eGFR For Non-African Americans > 60 (> 60)
[2020-10-16] MEDS: *HR* Heparin 5,000 UNIT/ML VIAL SQ SCH ×2 (06:14→16:00)
[2020-10-16] MEDS: predniSONE 20 MG TABLET PO SCH (09:33)
[2020-10-16] MEDS: Gabapentin 300 MG CAPSULE PO SCH ×3 (09:33→20:16)
[2020-10-16] MEDS: cefTRIAXone 1,000 MG in Water for inj. (sterile) 10 ML IVP SCH (09:33)
[2020-10-17] MEDS: *HR* Heparin 5,000 UNIT/ML VIAL SQ SCH (05:32)
[2020-10-17 07:10] LABS: Basophils # 0.1 K/mcL (0.0-0.2); Basophils % 0.5 %; Eosinophils % 0.2 %; Hematocrit 43.4 % (35.3-44.9); Hemoglobin 13.6 g/dL (11.5-15.4); Immature Granulocytes % 3.4 % (0-4); Lymphocytes # 2.1 K/mcL (0.6-4.6); Lymphocytes % 13.7 %; Mean Corpuscular HGB Conc 31.3 g/dL (31.6-35.5); Mean Corpuscular Hemoglobin 28.3 pg (28.0-33.3); Mean Corpuscular Volume 90.4 fL (83.0-100.0); Mean Platelet Volume 10.7 fL (9.4-12.4); Monocytes # 0.9 K/mcL (0.0-1.3); Neutrophils # 11.5 K/mcL (1.6-8.9); Platelet Count 245 K/mcL (140-400); Red Cell Distribution Width 13.9 % (11.5-14.5); Segmented Neutrophils % 76.2 %; White Blood Count 15.1 K/mcL (4.3-11.1)
[2020-10-17 07:30] LABS: BUN/Creatinine Ratio 33 (6-26); Blood Urea Nitrogen 29 mg/dL (8-23); Calcium 8.9 mg/dL (8.6-10.3); Carbon Dioxide 29 mEq/L (23-29); Chloride 105 mEq/L (98-107); Glucose 108 mg/dL (70-105); Osmolality,Calculated 294 (280-300); Sodium 139 mEq/L (136-145); eGFR For African Americans > 60 (> 60); eGFR For Non-African Americans > 60 (> 60)
[2020-10-17] MEDS: Gabapentin 300 MG CAPSULE PO SCH (09:31)
[2020-10-17] MEDS: predniSONE 20 MG TABLET PO SCH (09:31)
[2020-10-17] MEDS: cefTRIAXone 1,000 MG in Water for inj. (sterile) 10 ML IVP SCH (09:31)
[2020-10-17 10:52] VITALS: BP 151/83
== END 2020-10-17 14:34 | disposition home or self-care (01) ==
LOC: EMEROOARM 08:48 → 3NENU 08:48
PROVIDERS: ADMIT Internal Medicine; ATTEND Internal Medicine